=== PATIENT | male | born 1970 | race African-American/Black ===

== ENCOUNTER 2020-02-15 20:51 | Emergency (ER) | payer MEDICARE, MEDICAID ==
[~2020-02-15] VITALS: Ht 185.4 cm; Wt 68.0 kg
[~2020-02-15 20:51] MED LIST: IBUPROFEN600 MG ORAL
--- NOTE | 2020-02-15 21:05 | NUR ---
ED Nurse Note: pt presents to ED c/o abd bloating x 7 months. he reports that he has been seen and treated at [facility] for similar symptoms in the past, denies pain at the moment, only c/o "discomfort" pt states that he needs an enema "to get rid of gas" in his abd. pt denies any urinary symptoms at this time, also reports off and on diarrhea for the past 7 months
[2020-02-15 21:07] VITALS: BP 118/69
[2020-02-15] MEDS ORDERED: Mylanta II UD 30ml ORAL ONE (21:15)
[2020-02-15] MEDS ORDERED: Dicyclomine HCl 10mg/5ml oral soln ORAL ONE (21:15)
[2020-02-15] MEDS ORDERED: Lidocaine 2% Visc 15ml soln ORAL ONE (21:15)
[2020-02-15] MEDS ORDERED: MAGNESIUM CITR296 M1 PO (21:36)
[2020-02-15] MEDS ORDERED: DICYCLOMINE HCL10 MG ORAL (21:36)
--- NOTE | 2020-02-15 21:39 | Emergency Room Report ---
History of Present Illness General Chief Complaint: Abdominal Pain Source: Patient Present Illness HPI 49-year-old male here with abdominal bloat bloating and gas since June. Patient says he is followed up with his primary care provider and other emergency departments throughout the city multiple times for the same complaint. Patient says it is intermittent. He says that he feels abdominal distention and large amount of gas. Patient says that he has been trying [id number] medications to help with his constipation with some relief. He is here asking for "something more powerful" than Dulcolax. Allergies: Coded Allergies: No Known Allergies (Unverified , 08/03/15) COVID-19 Screening Contact w/high risk pt: No Experienced COVID-19 symptoms?: No COVID-19 Testing performed RN LVN: No Review of Systems All Other Systems: negative except mentioned in HPI Physical Exam Vital Signs Date Time Temp Pulse Resp B/P (MAP) Pulse Ox O2 Delivery O2 Flow Rate FiO2 02/15/20 20:56 98.4 76 18 118/69 (85) 95 Room Air Sp02 EP Interpretation: reviewed, normal General Appearance: no apparent distress, alert, non-toxic Head: normocephalic, atraumatic Eyes: bilateral eye normal inspection, bilateral eye PERRL ENT: hearing grossly normal, normal pharynx, no angioedema, normal voice Neck: full range of motion, supple/symm/no masses Respiratory: chest non-tender, lungs clear, normal breath sounds, speaking full sentences Cardiovascular #1: regular rate, rhythm, no edema Cardiovascular #2: 2+ carotid (R), 2+ carotid (L), 2+ radial (R), 2+ radial (L), 2+ dorsalis pedis (R), 2+ dorsalis pedis (L) Gastrointestinal: normal bowel sounds, non tender, soft, non-distended, no guarding, no rebound Rectal: deferred Genitourinary: normal inspection, no CVA tenderness Musculoskeletal: back normal, normal range of motion, gait/station normal, non- tender Neurologic: alert, motor strength/tone normal, oriented x3, sensory intact, responsive, speech normal Psychiatric: judgement/insight normal, memory normal, mood/affect normal, no suicidal/homicidal ideation Lymphatic: no adenopathy Medical Decision Making Diagnostic Impression: Primary Impression: Bloating Additional Impression: Constipation ER Course Laboratory Tests Test 02/15/20 21:30 02/15/20 21:46 White Blood Count 4.5 K/UL (4.8-10.8) L Red Blood Count 4.35 M/UL (4.70-6.10) L Hemoglobin 12.2 G/DL (14.2-18.0) L Hematocrit 37.9 % (42.0-52.0) L Mean Corpuscular Volume 87 FL (80-99) Mean Corpuscular Hemoglobin 28.1 PG (27.0-31.0) Mean Corpuscular Hemoglobin Concent 32.3 G/DL (32.0-36.0) Red Cell Distribution Width 12.9 % (11.6-14.8) Platelet Count 145 K/UL (150-450) L Mean Platelet Volume 10.5 FL (6.5-10.1) H Neutrophils (%) (Auto) 68.0 % (45.0-75.0) Lymphocytes (%) (Auto) 21.1 % (20.0-45.0) Monocytes (%) (Auto) 7.5 % (1.0-10.0) Eosinophils (%) (Auto) 2.7 % (0.0-3.0) Basophils (%) (Auto) 0.8 % (0.0-2.0) Sodium Level 137 MMOL/L (136-145) Potassium Level 4.3 MMOL/L (3.5-5.1) Chloride Level 105 MMOL/L (98-107) Carbon Dioxide Level 27 MMOL/L (21-32) Anion Gap 6 mmol/L (5-15) Blood Urea Nitrogen 14 mg/dL (7-18) Creatinine 1.3 MG/DL (0.55-1.30) Estimated Glomerular Filtration Rate > 60 mL/min (>60) Glucose Level 99 MG/DL (74-106) Calcium Level 8.6 MG/DL (8.5-10.1) Total Bilirubin 0.3 MG/DL (0.2-1.0) Aspartate Amino Transferase (AST) 27 U/L (15-37) Alanine Aminotransferase (ALT) 22 U/L (12-78) Alkaline Phosphatase 74 U/L (46-116) Total Protein 7.4 G/DL (6.4-8.2) Albumin 3.9 G/DL (3.4-5.0) Globulin 3.5 g/dL Albumin/Globulin Ratio 1.1 (1.0-2.7) Lipase 124 U/L (73-393) Urine Color Pale yellow Urine Appearance Clear Urine pH 7 (4.5-8.0) Urine Specific [place] 1.005 (1.005-1.035) Urine Protein Negative (NEGATIVE) Urine Glucose (UA) Negative (NEGATIVE) Urine Ketones Negative (NEGATIVE) Urine Blood Negative (NEGATIVE) Urine Nitrite Negative (NEGATIVE) Urine Bilirubin Negative (NEGATIVE) Urine Urobilinogen Normal MG/DL (0.0-1.0) Urine Leukocyte Esterase Negative (NEGATIVE) 41-year-old male here with abdominal bloating and gas for several months. Patient was hemodynamically stable in the emergency department to complete the negative physical exam with no abdominal tenderness or distention or rebound or guarding. CBC, CMP, urinalysis all unremarkable. Patient has been taking Dulcolax due to constipation but was asking for "something stronger." He was given a prescription for magnesium citrate and a prescription for Bentyl. He will follow-up with his primary care provider at his appointment tomorrow. Discharged in stable condition. Last Vital Signs Date Time Temp Pulse Resp B/P (MAP) Pulse Ox O2 Delivery O2 Flow Rate FiO2 02/15/20 21:07 98.4 76 18 118/69 95 Room Air Disposition: HOME, SELF-CARE Condition: Stable Scripts Magnesium Citrate (MAGNESIUM CITRATE) 296 Ml Solution 296 ML PO ONCE, #1 AMP Prov: Dominick Hobbs M.D. 02/15/20 Dicyclomine Hcl* (DICYCLOMINE HCL*) 10 Mg Capsule 10 MG ORAL TID, #10 CAP Prov: Dominick Hobbs M.D. 02/15/20 Referrals: [facility] Patient Instructions: Abdominal Pain, Adult Additional Instructions: Please follow-up with your primary care doctor in the next 1 to 3 days to discuss this emergency department visit and for reevaluation. If you have any new or worsening symptoms please return to the emergency department for reevaluation. Dominick Hobbs M.D. Feb 15, 2020 21:39
[2020-02-15 21:47] LABS: BASOPHILS % (AUTO) 0.8 % (0.0-2.0); EOSINOPHILS % (AUTO) 2.7 % (0.0-3.0); HEMATOCRIT 37.9 % (42.0-52.0); HEMOGLOBIN 12.2 G/DL (14.2-18.0); LYMPHOCYTES % (AUTO) 21.1 % (20.0-45.0); MEAN CORPUSCULAR VOLUME 87 FL (80-99); MONOCYTES % (AUTO) 7.5 % (1.0-10.0); PLATELET COUNT 145 K/UL (150-450); RED BLOOD COUNT 4.35 M/UL (4.70-6.10); RED CELL DISTRIBUTION WIDTH 12.9 % (11.6-14.8); WHITE BLOOD COUNT 4.5 K/UL (4.8-10.8)
[2020-02-15 22:01] LABS: ANION GAP 6 mmol/L (5-15); BLOOD UREA NITROGEN 14 mg/dL (7-18); CALCIUM 8.6 MG/DL (8.5-10.1); CARBON DIOXIDE 27 MMOL/L (21-32); CHLORIDE 105 MMOL/L (98-107); CREATININE 1.3 MG/DL (0.55-1.30); POTASSIUM 4.3 MMOL/L (3.5-5.1); SODIUM 137 MMOL/L (136-145)
[2020-02-15 22:07] LABS: ALANINE AMINOTRANSFERASE 22 U/L (12-78); ALBUMIN 3.9 G/DL (3.4-5.0); ALBUMIN/GLOBULIN RATIO 1.1 (1.0-2.7); ALKALINE PHOSPHATASE 74 U/L (46-116); ASPARTATE AMINO TRANSFERASE 27 U/L (15-37); BILIRUBIN,TOTAL 0.3 MG/DL (0.2-1.0)
--- NOTE | 2020-02-15 22:09 | NUR ---
ED Nurse Note: urine sent to lab
[2020-02-15 22:32] LABS: APPEARANCE,URINE CLEAR; BILIRUBIN, URINE NEGATIVE (NEGATIVE); COLOR,URINE PALE YELLOW; GLUCOSE, URINE (UA) NEGATIVE (NEGATIVE); KETONES,URINE NEGATIVE (NEGATIVE); LEUKOCYTE ESTERASE ,URINE NEGATIVE (NEGATIVE); NITRITE,URINE NEGATIVE (NEGATIVE); PH,URINE 7 (4.5-8.0); PROTEIN,URINE NEGATIVE (NEGATIVE); UROBILINOGEN,URINE NORMAL MG/DL (0.0-1.0)
[2020-02-15 22:50] VITALS: BP 146/82
--- NOTE | 2020-02-15 22:50 | NUR ---
ER DISCHARGE NOTE: Patient is cleared to be discharged per ERMD. Pt is aox4, on room air, with stable vital signs. Pt was given dc and prescription instructions. Pt was able to verbalize understanding; instructed pt to follow up with primary care physican within one week. Pt ID band and iv site removed without complications; site clean and bandaged. Pt is able to ambulate with steady gait. pt took all belongings.
== END 2020-02-15 22:50 | disposition home or self-care (01) ==
LOC: EMR 22:19
DX: K59.00 Constipation, unspecified (principal); R14.0 Abdominal distension (gaseous)
CPT/HCPCS: 36415; 80053; 81003; 83690; 85025; 99283